=== PATIENT | male | born 1950 | race Caucasian/White ===

== ENCOUNTER 2019-02-08 08:30 | Day surgery (SDC) | payer MEDICARE, MEDICAID ==
[2019-02-07 17:11] VITALS: BMI 25.5
[2019-02-08] MEDS ORDERED: PROPOFOL 200 MG/20 ML VIAL ONE (11:17)
--- NOTE | 2019-02-08 12:31 | OP ---
DATE OF PROCEDURE: 02/08/2019 [employer] SURGEON: None. PROCEDURE PERFORMED: Colonoscopy, surveillance. INDICATION: 68-year-old man with a prior history of colon polyps, last colonoscopy was in 2012. MEDICATIONS: See Anesthesia record. FINDINGS: After discussion of the risks, benefits, and alternatives of the procedure, informed consent was obtained and verified. Pre-endoscopic cardiopulmonary examination was satisfactory. Time-out was performed before sedation was achieved. Sedation was achieved with Anesthesia assistance in the endoscopy unit. Digital rectal exam was performed, which was unremarkable. A Pentax adult colonoscope was inserted into the anus and passed forward to the cecum in the usual fashion. The cecal base was identified by the appendiceal orifice as well as the ileocecal valve. The terminal ileum was intubated and the ileal mucosa appeared normal. The colonoscope was slowly withdrawn in a gradual and circumferential manner with careful examination of the entire colonic mucosa. The quality of the prep was good. The colonic mucosa appeared normal throughout. There was no evidence of any polyps or mass lesions or other mucosal abnormalities. Retroflexion in the rectum was normal. The colonoscope was then completely withdrawn and the patient allowed to recover. The patient tolerated the procedure well. There were no immediate postprocedure complications. IMPRESSION: Normal colonoscopy to the terminal ileum. RECOMMENDATION: Repeat colonoscopy for surveillance in 5 years. Job ID: [id number]
== END 2019-02-08 12:25 | disposition home or self-care (01) ==
LOC: SDC 08:30
PROVIDERS: ATTEND Internal Medicine
PROC: 0DJD8ZZ Inspection of Lower Intestinal Tract, Via Natural or Artificial Opening Endoscopic (ICD-10-PCS; principal; 2019-02-08)
DX: Z12.11 Encounter for screening for malignant neoplasm of colon (principal); B18.1 Chronic viral hepatitis B without delta-agent; Z79.899 Other long term (current) drug therapy; Z86.010 Personal history of colon polyps
CPT/HCPCS: J2704

== ENCOUNTER 2024-01-25 06:29 | Day surgery (SDC) | payer MEDICARE, MEDICAID ==
[2024-01-24 09:27] VITALS: BMI 21.2
[2024-01-25] MEDS ORDERED: Lidocaine 2% PF 5 ML VIAL ONE (07:29)
[2024-01-25] MEDS ORDERED: PROPOFOL 20 ML ONE (07:29)
== END 2024-01-25 09:05 | disposition home or self-care (01) ==
LOC: SDC 06:29
PROVIDERS: ATTEND Internal Medicine
PROC: 0DBK8ZZ Excision of Ascending Colon, Via Natural or Artificial Opening Endoscopic (ICD-10-PCS; principal; 2024-01-25)
DX: Z12.11 Encounter for screening for malignant neoplasm of colon (principal); D12.2 Benign neoplasm of ascending colon; K63.89 Other specified diseases of intestine; M81.0 Age-related osteoporosis without current pathological fracture; F84.0 Autistic disorder; E80.4 Gilbert syndrome; E78.2 Mixed hyperlipidemia; B19.10 Unspecified viral hepatitis B without hepatic coma; B35.1 Tinea unguium; Z86.0100 Personal history of colon polyps, unspecified; Z98.890 Other specified postprocedural states; Z79.899 Other long term (current) drug therapy
CPT/HCPCS: 45385; J2704; 88305